=== PATIENT | female | born 1960 | race Caucasian/White ===

== ENCOUNTER 2023-02-19 10:01 | Day surgery (SDC) | payer OTHER ==
[~2023-02-19] VITALS: Ht 160 cm; Wt 63.5 kg
[2023-02-19] MEDS ORDERED: LIDOCAINE 2% 100 MG/5 ML UJET TP ONE (10:41)
[2023-02-19] MEDS ORDERED: diphenhydrAMINE 50 MG/ML VIAL ONE (10:41)
[2023-02-19] MEDS ORDERED: fentaNYL citrate 0.05 MG/ML VIAL ONE (10:41)
[2023-02-19] MEDS ORDERED: MIDAZOLAM 5 MG/5 ML VIAL ONE (10:41)
[2023-02-19] MEDS: LIDOCAINE 2% 100 MG/5 ML UJET TP ONE (10:43)
[2023-02-19] MEDS: MIDAZOLAM 2 MG/2 ML VIAL IVP ONE (10:43)
[2023-02-19] MEDS: fentaNYL citrate 0.05 MG/ML VIAL IVP ONE (10:44)
== END 2023-02-19 12:05 | disposition home or self-care (01) ==
LOC: MMU 10:01 → MDS 10:01
PROVIDERS: ATTEND Internal Medicine Gastroenterology
DX: Z12.11 Encounter for screening for malignant neoplasm of colon (principal); K63.5 Polyp of colon; E11.9 Type 2 diabetes mellitus without complications; E78.00 Pure hypercholesterolemia, unspecified
CPT/HCPCS: 82948; J1200; J2250; J3010

== ENCOUNTER 2023-07-25 09:41 | Day surgery (SDC) | payer OTHER ==
[~2023-07-25] VITALS: Ht 157.5 cm; Wt 88.5 kg
[2023-07-25] MEDS ORDERED: fentaNYL citrate 0.05 MG/ML VIAL ONE (10:23)
[2023-07-25] MEDS ORDERED: LIDOCAINE 2% 100 MG/5 ML UJET TP ONE (10:23)
[2023-07-25] MEDS: fentaNYL citrate 0.05 MG/ML VIAL IVP ONE (10:30)
== END 2023-07-25 11:55 | disposition home or self-care (01) ==
LOC: MDS 09:41 → MMU 09:43 → MDS 11:55
PROVIDERS: ATTEND Internal Medicine Gastroenterology
DX: Z12.11 Encounter for screening for malignant neoplasm of colon (principal); Z86.010 Personal history of colon polyps; K57.30 Diverticulosis of large intestine without perforation or abscess without bleeding; K63.5 Polyp of colon; E78.5 Hyperlipidemia, unspecified; E66.9 Obesity, unspecified; Z68.35 Body mass index [BMI] 35.0-35.9, adult; E07.9 Disorder of thyroid, unspecified; Z79.899 Other long term (current) drug therapy; Z98.890 Other specified postprocedural states
CPT/HCPCS: 45385; J3010